=== PATIENT | male | born 1995 | race Caucasian/White ===

== ENCOUNTER 2024-02-13 18:24 | Emergency (ER) | payer OTHER ==
[~2024-02-13] VITALS: Ht 170.2 cm; Wt 63.5 kg
[2024-02-13 19:31] VITALS: TEMP 98.4
[2024-02-13 19:51] VITALS: BP 125/75; O2SAT 100
== END 2024-02-13 19:51 | disposition home or self-care (01) ==
LOC: ER 18:30
DX: S61.412A Laceration without foreign body of left hand, initial encounter (principal); J45.909 Unspecified asthma, uncomplicated; W25.XXXA Contact with sharp glass, initial encounter; Y93.G1 Activity, food preparation and clean up; Y92.090 Kitchen in other non-institutional residence as the place of occurrence of the external cause; Y99.8 Other external cause status